=== PATIENT | female | born 1940 | race Caucasian/White ===

== ENCOUNTER 2025-03-09 22:21 | Inpatient (IN) | payer MEDICARE, OTHER ==
[~2025-03-09] VITALS: Ht 165.1 cm; Wt 51.7 kg
[~2025-03-09 22:21] MED LIST: FERR220S2 JT
[2025-03-09 22:30] VITALS: O2SAT 98
[2025-03-09 22:47] LABS: PLATELET COUNT (AUTO) 208 K/uL (150-450); RED BLOOD CELL COUNT(AUTO) 3.01 MIL/uL (4.0-5.2); RED CELL DISTRIBUTION WIDTH 15.1 % (11.5-15.0); WHITE BLOOD COUNT (AUTO) 7.6 K/uL (4.3-11.0)
[2025-03-09 22:54] LABS: CALCIUM, SERUM 10.0 mg/dL (8.5-10.1); CREATININE 1.2 mg/dL (0.6-1.3); SODIUM SERUM 139 mmol/L (136-145); UREA NITROGEN, BLOOD 43 mg/dL (7-18)
[2025-03-09 22:57] LABS: FLOW, VBG 4.00 L/min (0.00-30.00); SITE, VBG VBG - N/A; VBG BASE EXCESS 2.6 mmol/L (-2.0-3.0); VBG HCO3 28.7 mmol/L (22.0-29.0); VBG MetHb 0.3 % (0.5-1.5); VBG OXYGEN SATURATION 44.1 % (60.0-85.0); VBG PCO2 52.0 mmHg (38.0-54.0); VBG PH 7.360 (7.320-7.430); VBG PO2 25.8 mmHg (23.0-48.0); VBG TOTAL HEMOGLOBIN 10.3 G/dL (12.0-16.0)
[2025-03-09 23:00] LABS: ASPARTATE AMINOTRANSFERASE 29 U/L (15-37); TOTAL PROTEIN, SERUM 8.8 g/dL (6.4-8.2)
[2025-03-09 23:02] LABS: INR 1.04 (0.91-1.10)
[2025-03-09 23:05] LABS: LACTIC ACID 3.8 mmol/L (0.4-2.0)
[2025-03-09] MEDS ORDERED: VANCOMYCIN 1 GM /D5W 250 ML PB IV ONE (23:13)
[2025-03-09] MEDS ORDERED: CEFEPIME 1 GM VIAL ONE (23:13)
[2025-03-09 23:23] LABS: APPEARANCE,URINE SLIGHTLY CLOUDY (CLEAR); BLOOD, URINE NEGATIVE Ery/uL (NEGATIVE); LEUKOCYTE ESTERASE ,URINE 1+ (NEGATIVE); NITRITE, URINE NEGATIVE (NEGATIVE); UGLUCOSE NEGATIVE (NEGATIVE)
[2025-03-09] MEDS ORDERED: IOHEXOL-350 100 ML VIAL IV ONE (23:23)
[2025-03-09] MEDS ORDERED: IV NS 0.9% 250 ML IV ONE (23:24)
[2025-03-09] MEDS ORDERED: CT SWABBABLE VALVE TRANS SET 1 EA INFUS.SET MC ONE (23:24)
[2025-03-09 23:26] LABS: CALCIUM, SERUM 9.7 mg/dL (8.5-10.1); CREATININE 1.4 mg/dL (0.6-1.3); SODIUM SERUM 141.0 mmol/L (136-145); UREA NITROGEN, BLOOD 42.0 mg/dL (7-18)
[2025-03-09] MEDS: CEFEPIME 1 GM in IV D5W 50 ML IV ONE (23:33)
[2025-03-09] MEDS: IV LR 500 ML IV ONE (23:34)
[2025-03-09 23:35] LABS: ADD URINE CULTURE YES; SQUAMOUS EPITHELIAL CELL,UR 0-2 /HPF (None Seen)
[2025-03-09] MEDS ORDERED: ACETAMINOPHEN 325 MG/SUPP.RECT RC ONE (23:36)
[2025-03-09] MEDS ORDERED: ACETAMINOPHEN 650 MG/SUPP.RECT RC ONE (23:36)
[2025-03-09] MEDS: ACETAMINOPHEN 650 MG/SUPP.RECT RC ONE (23:45)
[2025-03-09] MEDS: DEXTROSE 50%-WATER 50 ML DISP.SYRIN IVP ONE (23:46)
[2025-03-10] MEDS: VANCOMYCIN 1 GM in IV D5W 250 ML IV ONE
[2025-03-10] MEDS: IV LR 1000 ML 1,000 ML IV ONE (01:14)
[2025-03-10] MEDS ORDERED: Z GUARD REMEDY 4 OZ OINT TP PRN (02:00)
[2025-03-10] MEDS ORDERED: DOSING PER PHARMACY-CEFEPIME IVPB XX PRN (02:00)
[2025-03-10] MEDS ORDERED: ONDANSETRON HCL/PF 4 MG/2 ML VIAL IVP PRN (02:00)
[2025-03-10] MEDS ORDERED: DOSING PER PHARMACY-VANCOMYCIN IV XX PRN (02:00)
[2025-03-10] MEDS ORDERED: ACETAMINOPHEN SUSP 80 MG/0.8 ML BOTTLE PO PRN (02:00)
[2025-03-10] MEDS ORDERED: SODIUM ZIRCONIUM CYCLOSILICATE 5 GM POWD.PACK ONE (02:32)
[2025-03-10] MEDS: SODIUM ZIRCONIUM CYCLOSILICATE 10 GM POWD.PACK PO ONE (02:38)
[2025-03-10] MEDS ORDERED: ACETAMINOPHEN 650 MG/20.3 ML UDC PO PRN (07:00)
[2025-03-10 08:00] VITALS: BP 194/62; TEMP 97.5; O2SAT 100
[2025-03-10] MEDS ORDERED: MIDO2.5T JT (08:43)
[2025-03-10] MEDS ORDERED: CHOL200059 JT (08:43)
[2025-03-10] MEDS ORDERED: MYRBETRIQ JT (08:43)
[2025-03-10] MEDS ORDERED: ASCO500T10 JT (08:43)
[2025-03-10] MEDS ORDERED: VALP250S3 JT (08:43)
[2025-03-10] MEDS ORDERED: BUDE10.2 IH (08:43)
[2025-03-10] MEDS ORDERED: ALBU0.633 IH (08:43)
[2025-03-10] MEDS ORDERED: ACET200V4 IH (08:43)
[2025-03-10] MEDS ORDERED: MIRT-90 JT (08:43)
[2025-03-10] MEDS ORDERED: DOCU100C36 JT (08:43)
[2025-03-10] MEDS ORDERED: METO25TA6 JT (08:43)
[2025-03-10] MEDS ORDERED: MAGN400O6 JT (08:43)
[2025-03-10] MEDS ORDERED: ZINC56.713 TP (08:43)
[2025-03-10] MEDS ORDERED: SALI45SP BC (08:43)
[2025-03-10] MEDS ORDERED: GLYC2TAB21 JT (08:43)
[2025-03-10] MEDS ORDERED: ACET325T53 JT (08:43)
[2025-03-10] MEDS ORDERED: ZINC30TA2 JT (08:43)
[2025-03-10] MEDS ORDERED: LACT-209 JT (08:43)
[2025-03-10] MEDS ORDERED: CARB1TAB21 JT (08:43)
[2025-03-10] MEDS ORDERED: MULT9LIQ6 JT (08:43)
[2025-03-10] MEDS ORDERED: ASPI-1169 JT (08:43)
[2025-03-10] MEDS ORDERED: LEVA0.6320 IH (08:43)
[2025-03-10] MEDS ORDERED: AMIO200T7 JT (08:43)
[2025-03-10] MEDS ORDERED: GLYC15DR5 EACHEYE (08:43)
[2025-03-10] MEDS ORDERED: IPRA42SP BNOSTRILS (08:43)
[2025-03-10] MEDS ORDERED: BISA10SU11 RC (08:43)
[2025-03-10] MEDS ORDERED: ROSU20TA32 JT (08:43)
[2025-03-10] MEDS ORDERED: FOLI0.4T6 JT (08:43)
[2025-03-10] MEDS ORDERED: NA P133E RC (08:43)
[2025-03-10] MEDS: PANTOPRAZOLE 40 MG VIAL IV SCH (08:44)
[2025-03-10] MEDS: ASPIRIN 81 MG TAB.CHEW GT SCH (08:44)
[2025-03-10] MEDS ORDERED: BISACODYL SUPP (10 MG) 10 MG/SUPP.RECT SUPP.RECT RC PRN (09:30)
[2025-03-10] MEDS ORDERED: ACETYLCYSTEINE 20% SOLN 800 MG/4 ML VIAL IH PRN (09:30)
[2025-03-10] MEDS ORDERED: MIDODRINE HCL 2.5 MG TABLET GT PRN (09:30)
[2025-03-10] MEDS ORDERED: POLYVINYL ALCOHOL 15 ML BOTTLE EACHEYE PRN (10:00)
[2025-03-10] MEDS ORDERED: ALBUTEROL FS 2.5 MG/3 ML VIAL.NEB NEB PRN (10:00)
[2025-03-10] MEDS: CARBIDOPA/LEVODOPA 25/100 MG 1 UDTAB GT SCH (10:10)
[2025-03-10] MEDS: METOPROLOL TARTRATE 25 MG TABLET JT PRN (10:10)
[2025-03-10] MEDS: JEVITY 1.2 CAL 1,000 ML BOTTLE JT SCH (10:11)
[2025-03-10] MEDS ORDERED: CARBOXYMETHYLCELLULOSE SODIUM 1 EA TUBE EACHEYE PRN (11:00)
[2025-03-10 11:07] LABS: PLATELET COUNT (AUTO) 186 K/uL (150-450); RED BLOOD CELL COUNT(AUTO) 2.83 MIL/uL (4.0-5.2); RED CELL DISTRIBUTION WIDTH 15.1 % (11.5-15.0); WHITE BLOOD COUNT (AUTO) 9.7 K/uL (4.3-11.0)
[2025-03-10 11:08] LABS: CALCIUM, SERUM 9.2 mg/dL (8.5-10.1); CREATININE 0.9 mg/dL (0.6-1.3); SODIUM SERUM 136.0 mmol/L (136-145); UREA NITROGEN, BLOOD 32.0 mg/dL (7-18)
[2025-03-10 11:21] LABS: LACTIC ACID 0.7 mmol/L (0.4-2.0)
[2025-03-10] MEDS: CEFEPIME 1 GM in IV D5W 50 ML IV SCH (11:23)
[2025-03-10] MEDS: IV NS 0.9% 1,000 ML IV SCH (11:23)
[2025-03-10 12:00] VITALS: BP 186/71; TEMP 98.5; O2SAT 99
[2025-03-10] MEDS: METOPROLOL TARTRATE 25 MG TABLET PO SCH (12:37)
[2025-03-10] MEDS: IPRATROPIUM BROMIDE 0.03 % 30 ML NASPR NS SCH (14:49)
[2025-03-10 16:00] VITALS: BP 155/63; TEMP 97.5; O2SAT 99
[2025-03-10] MEDS: ASCORBIC ACID 500 MG TABLET GT SCH (16:35)
[2025-03-10] MEDS: DOCUSATE SODIUM 100 MG CAPSULE PO SCH (16:35)
[2025-03-10 20:00] VITALS: BP 161/57; TEMP 97.3; O2SAT 96
[2025-03-10] MEDS: VALPROIC ACID 250 MG/5 ML UDC JT SCH (21:42)
[2025-03-10] MEDS: ATORVASTATIN 40 MG TABLET GT SCH (21:42)
[2025-03-10] MEDS: SENNOSIDES 8.6 MG TABLET PO SCH (21:42)
[2025-03-10] MEDS: MIRTAZAPINE 15 MG TABLET GT SCH (21:42)
[2025-03-11] VITALS (8 sets, daily range): BP systolic 110–145; BP diastolic 52–92; TEMP 97.5–98.1; O2SAT 94–99
[2025-03-11] MEDS: VANCOMYCIN 750 MG in IV D5W 250 ML IV SCH (00:18)
[2025-03-11 07:40] LABS: PLATELET COUNT (AUTO) 175 K/uL (150-450); RED BLOOD CELL COUNT(AUTO) 2.68 MIL/uL (4.0-5.2); RED CELL DISTRIBUTION WIDTH 15.6 % (11.5-15.0); WHITE BLOOD COUNT (AUTO) 12.6 K/uL (4.3-11.0)
[2025-03-11 07:53] LABS: ASPARTATE AMINOTRANSFERASE 20.0 U/L (15-37); CALCIUM, SERUM 8.6 mg/dL (8.5-10.1); CREATININE 0.9 mg/dL (0.6-1.3); PHOSPHORUS 2.8 mg/dL (2.5-4.9); SODIUM SERUM 139.0 mmol/L (136-145); TOTAL PROTEIN, SERUM 7.0 g/dL (6.4-8.2); UREA NITROGEN, BLOOD 28.0 mg/dL (7-18)
[2025-03-11] MEDS: FOLIC ACID 1 MG TABLET GT SCH (08:29)
[2025-03-11] MEDS: MULTIVIT W/MINERALS 1 TAB TABLET JT SCH (08:30)
[2025-03-11] MEDS: ASPIRIN 81 MG TAB.CHEW GT SCH (08:30)
[2025-03-11] MEDS: AMIODARONE HCL 200 MG TABLET GT SCH (08:30)
[2025-03-11] MEDS: CHOLECALCIFEROL 1,000 UNIT TABLET (VIT D3) JT SCH (08:30)
[2025-03-11] MEDS: ZINC SULFATE 220 MG CAPSULE JT SCH (08:31)
[2025-03-11] MEDS ORDERED: ALBUTEROL FS 2.5 MG/0.5 ML VIAL.NEB NEB PRN (09:00)
[2025-03-11 09:37] LABS: CREATINE KINASE, TOTAL 36.0 U/L (26-192)
[2025-03-11] MEDS: BUDESONIDE RESPULE INH 0.5 MG/2 ML AMPUL.NEB NEB SCH (19:44)
[2025-03-11] MEDS: ALBUTEROL FS 2.5 MG/0.5 ML VIAL.NEB NEB SCH (19:44)
[2025-03-12] VITALS (13 sets, daily range): BP systolic 128–187; BP diastolic 50–55; TEMP 97.5–97.9; O2SAT 93–100
[2025-03-12 07:43] LABS: PLATELET COUNT (AUTO) 148 K/uL (150-450); RED BLOOD CELL COUNT(AUTO) 2.56 MIL/uL (4.0-5.2); RED CELL DISTRIBUTION WIDTH 15.0 % (11.5-15.0); WHITE BLOOD COUNT (AUTO) 9.0 K/uL (4.3-11.0)
[2025-03-12 08:02] LABS: CALCIUM, SERUM 8.7 mg/dL (8.5-10.1); CREATININE 0.8 mg/dL (0.6-1.3); PHOSPHORUS 3.0 mg/dL (2.5-4.9); SODIUM SERUM 141.0 mmol/L (136-145); UREA NITROGEN, BLOOD 25.0 mg/dL (7-18)
[2025-03-12] MEDS: PANTOPRAZOLE 40 MG/PACK PACK GT SCH (08:10)
[2025-03-12] MEDS: FERROUS SULFATE UDC 300 MG/5 ML UDC JT SCH (08:13)
[2025-03-12 10:10] LABS: PTH, INTACT 65 pg/mL (15-65)
[2025-03-13] VITALS (10 sets, daily range): BP systolic 131–175; BP diastolic 54–96; TEMP 97.5; O2SAT 94–99
[2025-03-13 07:07] LABS: PLATELET COUNT (AUTO) 134 K/uL (150-450); RED BLOOD CELL COUNT(AUTO) 2.76 MIL/uL (4.0-5.2); RED CELL DISTRIBUTION WIDTH 15.6 % (11.5-15.0); WHITE BLOOD COUNT (AUTO) 8.8 K/uL (4.3-11.0)
[2025-03-13] MEDS ORDERED: SULF1TAB48 PO (11:40)
[2025-03-13] MEDS ORDERED: SULF1TAB48 GT (11:46)
[2025-03-13] MEDS: CEFTRIAXONE 1 G in IV D5W 50 ML IV SCH (12:20)
[2025-03-13] MEDS: hydrALAZINE HCL IV 20 MG VIAL IV ONE (16:24)
[2025-03-14 04:07] LABS: *SPE A/G RATIO 0.7 (0.7-1.7); *SPE ALBUMIN 2.5 g/dL (2.9-4.4); *SPE ALPHA-1-GLOBULIN 0.3 g/dL (0.0-0.4); *SPE ALPHA-2-GLOBULIN 0.7 g/dL (0.4-1.0); *SPE BETA GLOBULIN 0.9 g/dL (0.7-1.3); *SPE GLOBULIN, TOTAL 3.8 g/dL (2.2-3.9); *SPE M-SPIKE Not Observed g/dL (Not Observed); *SPE PROTEIN TOTAL 6.3 g/dL (6.0-8.5); *SPEGAMMA GLOBULIN 1.9 g/dL (0.4-1.8)
== END 2025-03-13 21:00 | DRG 871 ==
LOC: ER 22:33 → TELE 03-10 02:24 → MED 03-12 18:15
DX: A41.9 Sepsis, unspecified organism (principal); I21.A1 Myocardial infarction type 2; J96.21 Acute and chronic respiratory failure with hypoxia; J69.0 Pneumonitis due to inhalation of food and vomit; N17.0 Acute kidney failure with tubular necrosis; E44.1 Mild protein-calorie malnutrition; D68.59 Other primary thrombophilia; E87.20 Acidosis, unspecified; E88.09 Other disorders of plasma-protein metabolism, not elsewhere classified; L89.156 Pressure-induced deep tissue damage of sacral region; N39.0 Urinary tract infection, site not specified; B96.89 Other specified bacterial agents as the cause of diseases classified elsewhere; I50.32 Chronic diastolic (congestive) heart failure; I11.0 Hypertensive heart disease with heart failure; D64.9 Anemia, unspecified; G20.A1 Parkinson's disease without dyskinesia, without mention of fluctuations; Z68.1 Body mass index [BMI] 19.9 or less, adult; E78.5 Hyperlipidemia, unspecified; E87.5 Hyperkalemia; I48.91 Unspecified atrial fibrillation; Z93.1 Gastrostomy status; M81.0 Age-related osteoporosis without current pathological fracture; Z74.01 Bed confinement status; R13.10 Dysphagia, unspecified; L98.8 Other specified disorders of the skin and subcutaneous tissue
CPT/HCPCS: 36415; 71045-TC; 76770-TC; 80048-TC; 80053-TC; 80076-TC; 81001; 82550-TC; 82803-TC; 83605-TC; 83735-TC; 83880; 83970; 84100-TC; 84155; 84165; 84484-TC; 85025-TC; 85730-TC; 87040-TC; 87081-TC; 87086-TC; 87186-TC; 92526; 92611; 93307-TC; 94760-TC; 94799-TC; 97112-TC; 97116-TC; 97530-TC; 97535-TC; A4223; A6213; G0378; J0360; J0692; J0696; J2470; J3373; J3374; J7030; J7040; J7050; J7060; J7120; Q9967